=== PATIENT | male | born 1975 | race Hispanic/Latino ===

== ENCOUNTER 2017-01-08 00:39 | Inpatient (IN) | payer OTHER ==
[2017-01-08] MEDS ORDERED: Naloxone 0.4 mg/ml Inj (Adult) ONE (00:45)
[2017-01-08 00:52] VITALS: BMI 28.7
[2017-01-08] MEDS ORDERED: Naloxone 0.4 mg/ml Inj (Adult) IVP STA (00:52)
[2017-01-08] MEDS ORDERED: Etomidate 20 mg/10ml Inj IV ONE ×4 (01:00→04:35)
[2017-01-08] MEDS ORDERED: Succinylcholine 200 mg/10 ml Inj IV ONE ×3 (01:01→04:35)
[2017-01-08 01:06] LABS: BASO # 0.1 K/uL (0.0-0.2); BASO % 0.6 % (0.0-2.0); EOS # 0.4 K/uL (0.0-0.7); EOS % 5.1 % (0.0-4.0); HEMATOCRIT 47.6 % (35.0-51.0); LYMPH % 35.1 % (20.0-40.0); MEAN CELL VOLUME 93.2 fl (80.0-94.0); MEAN CORPUSCULAR HEMOGLOBIN 31.4 pg (27.0-31.0); MEAN CORPUSCULAR HGB CONC 33.7 g/dL (33.0-37.0); MEAN PLATELET VOLUME 7.8 fl (7.2-11.7); MONO # 0.9 K/uL (0.0-0.8); MONO % 10.3 % (0.0-10.0); NEUT # 4.1 K/uL (1.8-7.0); NEUT % 48.9 % (50.0-75.0); NRBC % 0.1 % (0.0-0.0); RED CELL DISTRIBUTION WIDTH 13.2 % (11.5-14.5); WHITE BLOOD COUNT 8.5 K/uL (4.8-10.8)
[2017-01-08 01:16] LABS: ALCOHOL SERUM 60 mg/dl (0-10); BLOOD UREA NITROGEN 9 mg/dl (9-20); CALCIUM 8.9 mg/dL (8.4-10.2); CARBON DIOXIDE 20 mmol/L (22-30); CHLORIDE 105 mmol/L (98-107); GFR AFRICAN-AMERICAN > 60; GLUCOSE,RANDOM 123 mg/dL (75-110); POTASSIUM 3.7 MMOL/L (3.6-5.0); SODIUM 142 mmol/l (132-148)
[2017-01-08 01:19] LABS: CARBAMAZEPINE < 3.0 ug/mL (4.0-12.0); RBC URINE < 1 /hpf (0-3); URINE BILIRUBIN NEGATIVE (NEGATIVE); URINE BLOOD NEGATIVE (NEGATIVE); URINE COLOR YELLOW (YELLOW); URINE GLUCOSE (UA) NEG (Normal); URINE KETONE TRACE mg/dL (NEGATIVE); URINE LEUKOCYTE ESTERASE NEG Leu/uL (Negative); URINE PROTEIN NEGATIVE (NEGATIVE); URINE UROBILINOGEN 0.2-1.0 mg/dL (0.2-1.0); WBC URINE 1 /hpf (0-5)
[2017-01-08 01:21] LABS: VALPROIC ACID < 10.0 ug/mL (50.0-100.0)
[2017-01-08] MEDS ORDERED: Propofol 10 mg/ml Inj (20 ML) ONE (01:30)
[2017-01-08] MEDS ORDERED: Propofol 10 mg/ml 1,000 MG/100 ML VIAL ONE (01:31)
[2017-01-08 01:39] LABS: LITHIUM < 0.2 MMOL/L (0.6-1.2)
[2017-01-08] MEDS ORDERED: Propofol 10 mg/ml Inj (100 ml) IV SCH (02:15)
--- NOTE | 2017-01-08 02:22 | CP.PCM.CON ---
History of Present Illness - History of Present Illness History of Present Illness: CC: AMS after ingestion of unknown substance History mostly via GF and ER staff. HPI: This is a 41 y/o male with MHx significant for HTN and substance abuse ( cocaine, ?narcotics) who is brought in by EMS with AMS/obtunded. Per GF, this evening patient ingested a small amount of the content of an approximately 15 mL vial filled with an unidentified clear liquid. Soon after, patient became less responsive and threw up (nb/nb). The GF had never seen the vial or any other substance like it in the patient's possession in the past. Patient was intubated in the ER for airway protection given mental status and vomiting. ROS: unable to obtain as patient is sedated on vent MHx/SHx: HTN, substance abuse; ankle surgery Allergies: NKDA Medications: Pending Family Hx: Unknown as patient cannot provide as patient sedated on vent Social Hx: Patient lives with GF; does consume some EtOH, no tobacco, is known to abuse cocaine, possible narcotics and other substances Critical care time spent: 40 min Meds Allergies/Adverse Reactions: Allergies Allergy/AdvReac Type Severity Reaction Status Date / Time No Known Allergies Allergy Verified 01/08/17 00:52 - Medications Medications: Current Medications Propofol (Diprivan) 1,000 mg IV .TITRATE ALISE PRN Reason: Protocol Physical Exam - Constitutional Additional comments: sedated on vent - Head Exam Head Exam: ATRAUMATIC, NORMOCEPHALIC - ENT Exam ENT Exam: Mucous Membranes Moist - Neck Exam Neck exam: Positive for: Normal Inspection - Respiratory Exam Additional comments: on ventilator, coarse b/s b/l - Cardiovascular Exam Cardiovascular Exam: REGULAR RHYTHM, +S1, +S2 - GI/Abdominal Exam GI & Abdominal Exam: Normal Bowel Sounds, Soft - Extremities Exam Extremities exam: Positive for: normal inspection - Neurological Exam Additional comments: sedated - Skin Skin Exam: Dry, Warm Results - Vital Signs Recent Vital Signs: Last Vital Signs Temp 96.1 F L 01/08/17 02:10 Pulse 77 01/08/17 00:55 Resp 18 01/08/17 00:55 BP 153/71 H 01/08/17 00:55 Pulse Ox 97 01/08/17 00:55 - Labs Result Diagrams: 01/08/17 01:02 01/08/17 01:02 Labs: Laboratory Results - last 24 hr 01/08/17 01/08/17 01/08/17 01:02 01:02 01:02 WBC 8.5 RBC 5.11 Hgb 16.0 Hct 47.6 MCV 93.2 MCH 31.4 H MCHC 33.7 RDW 13.2 Plt Count 219 MPV 7.8 Neut % (Auto) 48.9 L Lymph % (Auto) 35.1 [place] % (Auto) 10.3 H Eos % (Auto) 5.1 H Baso % (Auto) 0.6 Neut # 4.1 Lymph # 3.0 [place] # 0.9 H Eos # 0.4 Baso # 0.1 Sodium 142 Potassium 3.7 Chloride 105 Carbon Dioxide 20 L Anion Gap 21 H BUN 9 Creatinine 0.9 Est GFR ( Amer) > 60 Est GFR (Non-Af Amer) > 60 Random Glucose 123 H Calcium 8.9 Urine Color Urine Clarity Urine pH Ur Specific [place] Urine Protein Urine Glucose (UA) Urine Ketones Urine Blood Urine Nitrate Urine Bilirubin Urine Urobilinogen Ur Leukocyte Esterase Urine RBC (Auto) Urine Microscopic WBC Salicylates < 1.0 Urine Opiates Screen Urine Methadone Screen Acetaminophen < 10.0 L Ur Barbiturates Screen Phenytoin < 3.0 L Valproic Acid < 10.0 L Carbamazepine < 3.0 L Ur Phencyclidine Scrn Ur Amphetamines Screen U Benzodiazepines Scrn [place] < 0.2 L U Oth Cocaine Metabols U Cannabinoids Screen Alcohol, Quantitative 60 H 01/08/17 01/08/17 01:02 01:02 WBC RBC Hgb Hct MCV MCH MCHC RDW Plt Count MPV Neut % (Auto) Lymph % (Auto) [place] % (Auto) Eos % (Auto) Baso % (Auto) Neut # Lymph # [place] # Eos # Baso # Sodium Potassium Chloride Carbon Dioxide Anion Gap BUN Creatinine Est GFR ( Amer) Est GFR (Non-Af Amer) Random Glucose Calcium Urine Color Yellow Urine Clarity Clear Urine pH 5.0 Ur Specific [place] 1.018 Urine Protein Negative Urine Glucose (UA) Neg Urine Ketones Trace Urine Blood Negative Urine Nitrate Negative Urine Bilirubin Negative Urine Urobilinogen 0.2-1.0 Ur Leukocyte Esterase Neg Urine RBC (Auto) < 1 Urine Microscopic WBC 1 Salicylates Urine Opiates Screen Negative Urine Methadone Screen Negative Acetaminophen Ur Barbiturates Screen Negative Phenytoin Valproic Acid Carbamazepine Ur Phencyclidine Scrn Negative Ur Amphetamines Screen Positive H U Benzodiazepines Scrn Negative [place] U Oth Cocaine Metabols Positive H U Cannabinoids Screen Negative Alcohol, Quantitative - EKG Data EKG comments: EKG pending - Imaging and Cardiology Chest x-ray Status: Image reviewed by me (no obvious acute findings) Assessment & Plan (1) Ingestion of foreign substance Assessment and Plan: 41 y/o male with AMS after ingestion of unknown substance. -Admit ICU -NPO, IVF for now -Continue vent support and sedation with propofol -f/u EKG, any results obtained regarding substance patient had ingested -AM CXR, Abg, EKG, and labs -GI PPx with PPI given on vent -DVT PPx with SQ Lovenox Status: Acute (2) Altered mental status Status: Acute (3) DVT prophylaxis Status: Acute
[2017-01-08] MEDS ORDERED: Sodium Chloride 0.9% 1,000 ML IV SCH (02:30)
--- NOTE | 2017-01-08 02:46 | ED PDOC ---
HPI: Psych/Substance Abuse Time Seen by Provider: 01/08/17 00:51 Chief Complaint (Nursing): Substance Abuse Chief Complaint (Provider): Drug Overdose ED Caveat: Acuity of Condition, Altered Mental Status, Respiratory Distress, Intubated History Per: Patient History/Exam Limitations: clinical condition Additional History Per: EMS, Girlfriend Additional Complaint(s): Reed is a 41 y/o male who was brought to ED by EMS for drug overdose. His girlfriend states she saw him drinking clear liquids, and 20 minutes after ingesting them, he became unresponsive and started vomiting uncontrollably, so she called EMS. EMS reports they noticed pinpoint pupils and gave patient 2mg narcan intranasally + 0.4mg narcan IV without adequate response. Patient arrives to ED in respiratory distress and obtunded. PMD: None Provided Past Medical History Reviewed: Historical Data, Nursing Documentation, Vital Signs Vital Signs: Last Vital Signs Temp 96.1 F L 01/08/17 02:10 Pulse 77 01/08/17 02:32 Resp 15 01/08/17 02:32 BP 144/94 H 01/08/17 02:32 Pulse Ox 98 01/08/17 02:32 - Family History Family History: States: Unknown Family Hx - Home Medications Home Medications: Ambulatory Orders Medication Instructions Recorded Unobtainable 01/08/17 - Allergies Allergies/Adverse Reactions: Allergies Allergy/AdvReac Type Severity Reaction Status Date / Time No Known Allergies Allergy Verified 01/08/17 00:52 Review of Systems Review Of Systems: ROS cannot be obtained secondary to pt's inabilty to answer questions. Physical Exam - Reviewed Nursing Documentation Reviewed: Yes Vital Signs Reviewed: Yes - Physical Exam Appears: Positive for: In Acute Distress Head Exam: Positive for: ATRAUMATIC, NORMAL INSPECTION, NORMOCEPHALIC Skin: Positive for: Normal Color, Warm, Diaphoresis Eye Exam: Positive for: Normal appearance, EOMI, PERRL. Negative for: Nystagmus ENT: Positive for: Normal ENT Inspection Neck: Positive for: Normal, Painless ROM, Supple Cardiovascular/Chest: Positive for: Regular Rate, Rhythm. Negative for: Murmur Respiratory: Positive for: Accessory Muscle Use, Respiratory Distress, Other ( loud, labored, sonorous respiration, abdominal breathing) Gastrointestinal/Abdominal: Positive for: Normal Exam, Bowel Sounds, Soft. Negative for: Tenderness Back: Positive for: Normal Inspection Extremity: Positive for: Normal ROM. Negative for: Pedal Edema, Deformity Neurologic/Psych: Negative for: Alert (unresponsive to voice, painful stimuli) - Laboratory Results Result Diagrams: 01/08/17 01:02 01/08/17 01:02 - ECG O2 Sat by Pulse Oximetry: 98 (Non-Rebreather) Pulse Ox Interpretation: Normal - Critical Care Total Time (In Min): 60 Medical Decision Making Medical Decision Making: Time: 00:52 Initial Impression: Drug Overdose Initial Plan: --ABG --CT Head w/o Contrast --Acetaminophen Stat --Alcohol Serum --BMP --Carbamazepine --Dilantin --Urine Drug Screen --[place] Stat --Salicylate Stat --Valproic Acid stat --Urinalysis --CMP --EKG --CBC --Chest XR Time: 2:16 --Lovenox --Narcan --Protonix --Diprivan --Ventilator --Rectal Temp --Elevate Head --Intake and Output --Vital Signs 315 Pt. starting to wake up despite high titrations of propofol and pulled out LMA, NGT removed. Pt. breathing better, no longer sonorous and less accessory muscle usage. Pt. opening eyes and following some commands, protecting airway at this time. Placed on NRB. Will continue admission to ICU. 330 Pt. breathing significantly improved on NRB. No need to reintubate at this time. Scribe Attestation: Documented by Mandeep Barrera, acting as a scribe for Damien Ag MD Provider Scribe Attestation: All medical record entries made by the Scribe were at my direction and personally dictated by me. I have reviewed the chart and agree that the record accurately reflects my personal performance of the history, physical exam, medical decision making, and the department course for this patient. I have also personally directed, reviewed, and agree with the discharge instructions and disposition. Disposition - Clinical Impression Clinical Impression: Drug overdose, Respiratory distress - Disposition Disposition Time: 01:30 Condition: SERIOUS Endotracheal Intubation - Endotracheal Intubation Intubated With ETT Size: 4 (LMA) [place] Type Used: Curved Indication: Airway Protection Intubated: Orally Pre-Intubation Airway Assessment: Need For Airway management Did Not Allow Time Medications Used During Pre-Intubation: Etomidate (Pt. intubated with LMA) Paralyzed With: Succinylcholine
[2017-01-08] MEDS ORDERED: Sodium Chloride 0.9% 1,000 ML IV STA ×3 (04:34→04:36)
[2017-01-08 07:41] LABS: HEMATOCRIT 43.4 % (35.0-51.0); MEAN CELL VOLUME 91.1 fl (80.0-94.0); MEAN CORPUSCULAR HEMOGLOBIN 31.7 pg (27.0-31.0); WHITE BLOOD COUNT 10.9 K/uL (4.8-10.8)
[2017-01-08 07:42] LABS: MEAN CORPUSCULAR HGB CONC 34.8 g/dL (33.0-37.0); MEAN PLATELET VOLUME 7.8 fl (7.2-11.7); RED CELL DISTRIBUTION WIDTH 13.1 % (11.5-14.5)
[2017-01-08 08:19] LABS: ALB/GLOB RATIO 1.4 (1.0-2.1); ALKALINE PHOSPHATASE 69 U/L (38-126); ALT/SGPT 47 U/L (21-72); AST/SGOT 35 U/L (17-59); BILIRUBIN,TOTAL 0.9 mg/dl (0.2-1.3); BLOOD UREA NITROGEN 8 mg/dl (9-20); CARBON DIOXIDE 20 mmol/L (22-30); CHLORIDE 111 mmol/L (98-107); GFR AFRICAN-AMERICAN > 60; GLUCOSE,RANDOM 116 mg/dL (75-110); POTASSIUM 3.9 MMOL/L (3.6-5.0); SODIUM 142 mmol/l (132-148); TOTAL PROTEIN 6.7 G/DL (6.3-8.2)
[2017-01-08 09:17] LABS: ABG ALLEN TEST YES; ARTERIAL BLOOD GAS HCO3 22.6 mmol/L (21-28); ARTERIAL BLOOD GAS MODE NRM; ARTERIAL BLOOD GAS O2 CONTENT 21.8 ML/dL (15-23); ARTERIAL BLOOD GAS PH 7.35 (7.35-7.45); ARTERIAL BLOOD GAS PO2 173 mm/Hg (80-100); CARBOXYHEMOGLOBIN 1.3 % (0.5-1.5); HHB 0.9 % (0.0-5.0); METHEMOGLOBIN 2.8 % (0.0-3.0)
[2017-01-08] MEDS: Enoxaparin 40 mg Syringe SC SCH (09:28)
--- NOTE | 2017-01-08 10:27 | RAD ---
PROCEDURE: CHEST RADIOGRAPH, 1 VIEW HISTORY: unresponsive COMPARISON: None available. FINDINGS: LUNGS: The lungs are clear. PLEURA: No pneumothorax or pleural fluid seen. CARDIOVASCULAR: Normal. OSSEOUS STRUCTURES: No significant abnormalities. VISUALIZED UPPER ABDOMEN: Normal. OTHER FINDINGS: None. IMPRESSION: No active pulmonary disease.
--- NOTE | 2017-01-08 10:29 | RAD ---
HISTORY: s/p intubation w/ LMA and NGT COMPARISON: No prior. FINDINGS: LUNGS: Portable examination is limited by motion blur. The lungs are clear. PLEURA: No significant pleural effusion identified, no pneumothorax apparent. CARDIOVASCULAR: Normal. OSSEOUS STRUCTURES: No significant abnormalities. VISUALIZED UPPER ABDOMEN: Normal. OTHER FINDINGS: None. IMPRESSION: Limited portable examination. No acute findings.
--- NOTE | 2017-01-08 10:54 | RAD ---
PROCEDURE: CHEST RADIOGRAPH, 1 VIEW HISTORY: intubated COMPARISON: Plain radiographs performed the same day from 1:58 am. FINDINGS: LUNGS: The endotracheal tube is not visualized. The lungs are clear. PLEURA: No pneumothorax or pleural fluid seen. CARDIOVASCULAR: Normal. OSSEOUS STRUCTURES: No significant abnormalities. VISUALIZED UPPER ABDOMEN: Normal. OTHER FINDINGS: None. IMPRESSION: No active pulmonary disease.
--- NOTE | 2017-01-08 17:42 | CARD ---
APPROVED REPORT EKG Measurement Heart [id number] <Conclusion> Normal sinus rhythm Incomplete right bundle branch block Nonspecific ST and T wave abnormality Abnormal ECG
--- NOTE | 2017-01-08 23:17 | CP.PCM.HP ---
Past Patient History - Past Medical History & Family History Past Medical History?: Yes - Past Social History Smoking Status: Never Smoked - CARDIAC Hx Cardiac Disorders: No - PULMONARY Hx Respiratory Disorders: No - NEUROLOGICAL Hx Neurological Disorder: No - HEENT Hx HEENT Problems: No - RENAL Hx Chronic Kidney Disease: No - ENDOCRINE/METABOLIC Hx Endocrine Disorders: No - HEMATOLOGICAL/ONCOLOGICAL Hx Blood Disorders: No - INTEGUMENTARY Hx Dermatological Problems: No - MUSCULOSKELETAL/RHEUMATOLOGICAL Hx Musculoskeletal Disorders: No - GASTROINTESTINAL Hx Gastrointestinal Disorders: No - GENITOURINARY/GYNECOLOGICAL Hx Genitourinary Disorders: No - PSYCHIATRIC Hx Psychophysiologic Disorder: No - SURGICAL HISTORY Hx Surgeries: No - ANESTHESIA Hx Anesthesia: No Hx Anesthesia Reactions: No Hx Malignant Hyperthermia: No Has any member of the family had a problem w/ anesthesia?: No Meds Allergies/Adverse Reactions: Allergies Allergy/AdvReac Type Severity Reaction Status Date / Time No Known Allergies Allergy Verified 01/08/17 00:52 Results - Vital Signs Recent Vital Signs: Last Vital Signs Temp 98.0 F 01/08/17 21:00 Pulse 101 H 01/08/17 21:00 Resp 16 01/08/17 21:00 BP 145/88 01/08/17 21:00 Pulse Ox 99 01/08/17 21:00 - Labs Result Diagrams: 01/08/17 05:30 01/08/17 05:30 Labs: Laboratory Results - last 24 hr 01/08/17 01/08/17 01/08/17 01:02 01:02 01:02 WBC 8.5 RBC 5.11 Hgb 16.0 Hct 47.6 MCV 93.2 MCH 31.4 H MCHC 33.7 RDW 13.2 Plt Count 219 MPV 7.8 Neut % (Auto) 48.9 L Lymph % (Auto) 35.1 [place] % (Auto) 10.3 H Eos % (Auto) 5.1 H Baso % (Auto) 0.6 Neut # 4.1 Lymph # 3.0 [place] # 0.9 H Eos # 0.4 Baso # 0.1 pCO2 pO2 HCO3 ABG pH ABG Total CO2 ABG O2 Saturation ABG O2 Content ABG Base Excess ABG Hemoglobin ABG Carboxyhemoglobin POC ABG HHb (Measured) ABG Methemoglobin ABG O2 Capacity [place] Test A-a O2 Difference Hgb O2 Saturation Vent Mode FiO2 Sodium 142 Potassium 3.7 Chloride 105 Carbon Dioxide 20 L Anion Gap 21 H BUN 9 Creatinine 0.9 Est GFR ( Amer) > 60 Est GFR (Non-Af Amer) > 60 Random Glucose 123 H Calcium 8.9 Total Bilirubin AST ALT Alkaline Phosphatase Total Protein Albumin Globulin Albumin/Globulin Ratio Urine Color Urine Clarity Urine pH Ur Specific [place] Urine Protein Urine Glucose (UA) Urine Ketones Urine Blood Urine Nitrate Urine Bilirubin Urine Urobilinogen Ur Leukocyte Esterase Urine RBC (Auto) Urine Microscopic WBC Salicylates < 1.0 Urine Opiates Screen Urine Methadone Screen Acetaminophen < 10.0 L Ur Barbiturates Screen Phenytoin < 3.0 L Valproic Acid < 10.0 L Carbamazepine < 3.0 L Ur Phencyclidine Scrn Ur Amphetamines Screen U Benzodiazepines Scrn [place] < 0.2 L U Oth Cocaine Metabols U Cannabinoids Screen Alcohol, Quantitative 60 H 01/08/17 01/08/17 01/08/17 01:02 01:02 04:50 WBC RBC Hgb Hct MCV MCH MCHC RDW Plt Count MPV Neut % (Auto) Lymph % (Auto) [place] % (Auto) Eos % (Auto) Baso % (Auto) Neut # Lymph # [place] # Eos # Baso # pCO2 41 pO2 173 H HCO3 22.6 ABG pH 7.35 ABG Total CO2 23.9 ABG O2 Saturation 99.1 H ABG O2 Content 21.8 ABG Base Excess -2.9 L ABG Hemoglobin 16.1 ABG Carboxyhemoglobin 1.3 POC ABG HHb (Measured) 0.9 ABG Methemoglobin 2.8 ABG O2 Capacity 22.0 [place] Test Yes A-a O2 Difference 489.0 Hgb O2 Saturation 95.0 Vent Mode Nrm FiO2 100.0 Sodium Potassium Chloride Carbon Dioxide Anion Gap BUN Creatinine Est GFR ( Amer) Est GFR (Non-Af Amer) Random Glucose Calcium Total Bilirubin AST ALT Alkaline Phosphatase Total Protein Albumin Globulin Albumin/Globulin Ratio Urine Color Yellow Urine Clarity Clear Urine pH 5.0 Ur Specific [place] 1.018 Urine Protein Negative Urine Glucose (UA) Neg Urine Ketones Trace Urine Blood Negative Urine Nitrate Negative Urine Bilirubin Negative Urine Urobilinogen 0.2-1.0 Ur Leukocyte Esterase Neg Urine RBC (Auto) < 1 Urine Microscopic WBC 1 Salicylates Urine Opiates Screen Negative Urine Methadone Screen Negative Acetaminophen Ur Barbiturates Screen Negative Phenytoin Valproic Acid Carbamazepine Ur Phencyclidine Scrn Negative Ur Amphetamines Screen Positive H U Benzodiazepines Scrn Negative [place] U Oth Cocaine Metabols Positive H U Cannabinoids Screen Negative Alcohol, Quantitative 01/08/17 01/08/17 05:30 05:30 WBC 10.9 H RBC 4.76 Hgb 15.1 Hct 43.4 MCV 91.1 D MCH 31.7 H MCHC 34.8 RDW 13.1 Plt Count 198 MPV 7.8 Neut % (Auto) Lymph % (Auto) [place] % (Auto) Eos % (Auto) Baso % (Auto) Neut # Lymph # [place] # Eos # Baso # pCO2 pO2 HCO3 ABG pH ABG Total CO2 ABG O2 Saturation ABG O2 Content ABG Base Excess ABG Hemoglobin ABG Carboxyhemoglobin POC ABG HHb (Measured) ABG Methemoglobin ABG O2 Capacity [place] Test A-a O2 Difference Hgb O2 Saturation Vent Mode FiO2 Sodium 142 Potassium 3.9 Chloride 111 H Carbon Dioxide 20 L Anion Gap 15 BUN 8 L Creatinine 0.8 Est GFR ( Amer) > 60 Est GFR (Non-Af Amer) > 60 Random Glucose 116 H Calcium 8.0 L Total Bilirubin 0.9 AST 35 ALT 47 Alkaline Phosphatase 69 Total Protein 6.7 Albumin 3.9 Globulin 2.8 Albumin/Globulin Ratio 1.4 Urine Color Urine Clarity Urine pH Ur Specific [place] Urine Protein Urine Glucose (UA) Urine Ketones Urine Blood Urine Nitrate Urine Bilirubin Urine Urobilinogen Ur Leukocyte Esterase Urine RBC (Auto) Urine Microscopic WBC Salicylates Urine Opiates Screen Urine Methadone Screen Acetaminophen Ur Barbiturates Screen Phenytoin Valproic Acid Carbamazepine Ur Phencyclidine Scrn Ur Amphetamines Screen U Benzodiazepines Scrn [place] U Oth Cocaine Metabols U Cannabinoids Screen Alcohol, Quantitative
[2017-01-09 08:16] VITALS: BP 143/88; RESP 18; TEMP 97.9; O2SAT 94
--- NOTE | 2017-01-09 08:35 | CP.PCM.DIS ---
Provider - Provider Date of Admission: 01/08/17 01:38 Attending physician: Jose D Monzon MD Time Spent in preparation of Discharge (in minutes): 35 Hospital Course - Lab Results Lab Results: Most Recent Lab Values WBC 10.9 K/uL (4.8-10.8) H 01/08/17 05:30 RBC 4.76 Mil/uL (4.40-5.90) 01/08/17 05:30 Hgb 15.1 g/dL (12.0-18.0) 01/08/17 05:30 Hct 43.4 % (35.0-51.0) 01/08/17 05:30 MCV 91.1 fl (80.0-94.0) D 01/08/17 05:30 MCH 31.7 pg (27.0-31.0) H 01/08/17 05:30 MCHC 34.8 g/dL (33.0-37.0) 01/08/17 05:30 RDW 13.1 % (11.5-14.5) 01/08/17 05:30 Plt Count 198 K/uL (130-400) 01/08/17 05:30 MPV 7.8 fl (7.2-11.7) 01/08/17 05:30 Neut % (Auto) 48.9 % (50.0-75.0) L 01/08/17 01:02 Lymph % (Auto) 35.1 % (20.0-40.0) 01/08/17 01:02 [place] % (Auto) 10.3 % (0.0-10.0) H 01/08/17 01:02 Eos % (Auto) 5.1 % (0.0-4.0) H 01/08/17 01:02 Baso % (Auto) 0.6 % (0.0-2.0) 01/08/17 01:02 Neut # 4.1 K/uL (1.8-7.0) 01/08/17 01:02 Lymph # 3.0 K/uL (1.0-4.3) 01/08/17 01:02 [place] # 0.9 K/uL (0.0-0.8) H 01/08/17 01:02 Eos # 0.4 K/uL (0.0-0.7) 01/08/17 01:02 Baso # 0.1 K/uL (0.0-0.2) 01/08/17 01:02 pCO2 41 mm/Hg (35-45) 01/08/17 04:50 pO2 173 mm/Hg (80-100) H 01/08/17 04:50 HCO3 22.6 mmol/L (21-28) 01/08/17 04:50 ABG pH 7.35 (7.35-7.45) 01/08/17 04:50 ABG Total CO2 23.9 mmol/L (22-28) 01/08/17 04:50 ABG O2 Saturation 99.1 % (95-98) H 01/08/17 04:50 ABG O2 Content 21.8 ML/dL (15-23) 01/08/17 04:50 ABG Base Excess -2.9 mmol/L (-2.0-3.0) L 01/08/17 04:50 ABG Hemoglobin 16.1 g/dL (11.7-17.4) 01/08/17 04:50 ABG Carboxyhemoglobin 1.3 % (0.5-1.5) 01/08/17 04:50 POC ABG HHb (Measured) 0.9 % (0.0-5.0) 01/08/17 04:50 ABG Methemoglobin 2.8 % (0.0-3.0) 01/08/17 04:50 ABG O2 Capacity 22.0 mL/dL (16-24) 01/08/17 04:50 [place] Test Yes 01/08/17 04:50 A-a O2 Difference 489.0 mm/Hg 01/08/17 04:50 Hgb O2 Saturation 95.0 % (95.0-98.0) 01/08/17 04:50 Vent Mode Nrm 01/08/17 04:50 FiO2 100.0 % 01/08/17 04:50 Sodium 142 mmol/l (132-148) 01/08/17 05:30 Potassium 3.9 MMOL/L (3.6-5.0) 01/08/17 05:30 Chloride 111 mmol/L (98-107) H 01/08/17 05:30 Carbon Dioxide 20 mmol/L (22-30) L 01/08/17 05:30 Anion Gap 15 (10-20) 01/08/17 05:30 BUN 8 mg/dl (9-20) L 01/08/17 05:30 Creatinine 0.8 mg/dl (0.8-1.5) 01/08/17 05:30 Est GFR ( Amer) > 60 01/08/17 05:30 Est GFR (Non-Af Amer) > 60 01/08/17 05:30 POC Glucose (mg/dL) 112 mg/dL (65-110) H 01/08/17 00:49 Random Glucose 116 mg/dL (75-110) H 01/08/17 05:30 Calcium 8.0 mg/dL (8.4-10.2) L 01/08/17 05:30 Total Bilirubin 0.9 mg/dl (0.2-1.3) 01/08/17 05:30 AST 35 U/L (17-59) 01/08/17 05:30 ALT 47 U/L (21-72) 01/08/17 05:30 Alkaline Phosphatase 69 U/L (38-126) 01/08/17 05:30 Total Protein 6.7 G/DL (6.3-8.2) 01/08/17 05:30 Albumin 3.9 g/dL (3.5-5.0) 01/08/17 05:30 Globulin 2.8 gm/dL (2.2-3.9) 01/08/17 05:30 Albumin/Globulin Ratio 1.4 (1.0-2.1) 01/08/17 05:30 Urine Color Yellow (YELLOW) 01/08/17 01:02 Urine Clarity Clear (Clear) 01/08/17 01:02 Urine pH 5.0 (5.0-8.0) 01/08/17 01:02 Ur Specific [place] 1.018 (1.003-1.030) 01/08/17 01:02 Urine Protein Negative mg/dL (NEGATIVE) 01/08/17 01:02 Urine Glucose (UA) Neg mg/dL (Normal) 01/08/17 01:02 Urine Ketones Trace mg/dL (NEGATIVE) 01/08/17 01:02 Urine Blood Negative (NEGATIVE) 01/08/17 01:02 Urine Nitrate Negative (NEGATIVE) 01/08/17 01:02 Urine Bilirubin Negative (NEGATIVE) 01/08/17 01:02 Urine Urobilinogen 0.2-1.0 mg/dL (0.2-1.0) 01/08/17 01:02 Ur Leukocyte Esterase Neg [place]/uL (Negative) 01/08/17 01:02 Urine RBC (Auto) < 1 /hpf (0-3) 01/08/17 01:02 Urine Microscopic WBC 1 /hpf (0-5) 01/08/17 01:02 Salicylates < 1.0 mg/dl 01/08/17 01:02 Urine Opiates Screen Negative (NEGATIVE) 01/08/17 01:02 Urine Methadone Screen Negative (NEGATIVE) 01/08/17 01:02 Acetaminophen < 10.0 ug/ml (10.0-30.0) L 01/08/17 01:02 Ur Barbiturates Screen Negative (NEGATIVE) 01/08/17 01:02 Phenytoin < 3.0 ug/ML (10-20) L 01/08/17 01:02 Valproic Acid < 10.0 ug/mL (50.0-100.0) L 01/08/17 01:02 Carbamazepine < 3.0 ug/mL (4.0-12.0) L 01/08/17 01:02 Ur Phencyclidine Scrn Negative (NEGATIVE) 01/08/17 01:02 Ur Amphetamines Screen Positive (NEGATIVE) H 01/08/17 01:02 U Benzodiazepines Scrn Negative (NEGATIVE) 01/08/17 01:02 [place] < 0.2 MMOL/L (0.6-1.2) L 01/08/17 01:02 U Oth Cocaine Metabols Positive (NEGATIVE) H 01/08/17 01:02 U Cannabinoids Screen Negative (NEGATIVE) 01/08/17 01:02 Alcohol, Quantitative 60 mg/dl (0-10) H 01/08/17 01:02 Discharge Exam - Head Exam Head Exam: ATRAUMATIC, NORMAL INSPECTION, NORMOCEPHALIC Discharge Plan - Follow Up Plan Condition: SERIOUS Disposition: HOME/ ROUTINE
[2017-01-09] MEDS: Enoxaparin 40 mg Syringe SC SCH (08:45)
[2017-01-09 08:59] VITALS: PULSE 95
== END 2017-01-09 10:00 | disposition home or self-care (01) | DRG 918 ==
LOC: H.ER 00:39 → H.ERHOLD 01:38 → H.ICU/CCU 05:23 → H.TEL 11:56
PROVIDERS: ADMIT Internal Medicine; ATTEND Internal Medicine
PROC: 0BH17EZ Insertion of Endotracheal Airway into Trachea, Via Natural or Artificial Opening (ICD-10-PCS; principal; 2017-01-08)
PROC: 5A1935Z Respiratory Ventilation, Less than 24 Consecutive Hours (ICD-10-PCS; 2017-01-08)
DX: T50.901A Poisoning by unspecified drugs, medicaments and biological substances, accidental (unintentional), initial encounter (principal); I10 Essential (primary) hypertension; F14.10 Cocaine abuse, uncomplicated; Y92.9 Unspecified place or not applicable; R06.03 Acute respiratory distress; R11.10 Vomiting, unspecified; R41.82 Altered mental status, unspecified